=== PATIENT | female | born 1960 | race Two or more races ===

== ENCOUNTER 2022-08-28 15:52 | Emergency (ER) | payer OTHER ==
[~2022-08-28] VITALS: Ht 167.6 cm; Wt 77.1 kg
[2022-08-28] MEDS ORDERED: XANAX1 MG PO (15:56)
[2022-08-28] MEDS ORDERED: SYNTHROID137 MCG PO (15:56)
[2022-08-28] MEDS ORDERED: XARELTO10 MG PO (18:51)
== END 2022-08-28 19:29 | disposition home or self-care (01) ==
LOC: ER 15:52
DX: S82.032A Displaced transverse fracture of left patella, initial encounter for closed fracture (principal); M97.12XA Periprosthetic fracture around internal prosthetic left knee joint, initial encounter; W19.XXXA Unspecified fall, initial encounter; Y93.89 Activity, other specified; Y92.89 Other specified places as the place of occurrence of the external cause; E05.80 Other thyrotoxicosis without thyrotoxic crisis or storm